=== PATIENT | male | born 1995 | race Caucasian/White ===

== ENCOUNTER 2020-11-11 09:29 | Emergency (ER) | payer SELFPAY ==
[2020-11-11] MEDS ORDERED: Sodium Chloride 0.9% 2.5 ML Syringe FLUSH PRN (09:58)
[2020-11-11] MEDS ORDERED: Sodium Chloride 0.9% 10 ML Syringe FLUSH PRN (09:58)
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
[2020-11-11] MEDS ORDERED: Tetracaine HCl/PF 0.5% 4 ML Bottle EYEBOTH ONE (10:14)
[2020-11-11 10:38] LABS: BLOOD UREA NITROGEN,BUN 9 mg/dL (7.0-18.0); CARBON DIOXIDE,CO2 30.1 mmol/L (21.0-32.0); CHLORIDE,CL 101 mmol/L (98-107); GLUCOSE RANDOM 103 mg/dL (74-106); POTASSIUM,K 4.1 mmol/L (3.5-5.1); SODIUM,NA 139 mmol/L (136-148)
[2020-11-11] MEDS ORDERED: methylPREDNISolone Sodium Succinate 125 MG/2 ML SDV IVPUSH ONE (10:46)
[2020-11-11] MEDS ORDERED: diphenhydrAMINE 50 MG/ML SDV IVPUSH ONE (10:46)
[2020-11-11] MEDS ORDERED: Iopamidol 755 MG/ML 500 ML Multipack Bottle IVPUSH ONE (11:00)
--- NOTE | 2020-11-11 11:22 | CT ---
DATE: 11/11/2020. CLINICAL HISTORY: Patient with left periorbital edema following nose bowing. TECHNIQUE: Standard CT scanning of the facial bones was performed. COMPARISON: None available. FINDINGS: There is a blowout fracture of the left lamina papyracea as well as the left orbital floor with associated herniation of extraconal fat but without definite evidence of entrapment of the inferior rectus muscle. In addition, there is extensive left periorbital subcutaneous and subconjunctival emphysema as well as left orbital emphysema, most notably along the roof of the left orbit. There is additional air seen within the left facial vein. No definite abnormality within the globe itself or the extra-ocular muscles. No evidence of significant abnormality within the visualized intracranial structures. IMPRESSION: 1. Blowout fracture of the left lamina papyracea and orbital floor with associated herniation of extraconal fat through both fractures, as detailed above. 2. Extensive left periorbital subcutaneous and subconjunctival emphysema as well as left orbital emphysema, with a small amount of air in the left facial vein. Please note that all CT scans at this facility use dose modulation, iterative reconstruction, and/or weight-based dosing when appropriate to reduce radiation dose to as low as reasonably achievable. Dictated by Alek Comer MD @ Nov 11 2020 11:09AM Signed by Dr. Alek Comer @ Nov 11 2020 11:21AM
== END 2020-11-11 12:26 | disposition home or self-care (01) ==
LOC: MW.ED 09:29
DX: S02.32XA Fracture of orbital floor, left side, initial encounter for closed fracture (principal); W22.8XXA Striking against or struck by other objects, initial encounter
CPT/HCPCS: 36415; 70487; 80053; 85025; 99284; Q9967; 99283

== ENCOUNTER 2022-11-27 14:21 | Emergency (ER) | payer SELFPAY | END 2022-11-27 21:02 | disposition left against medical advice (07) | LOC: MW.ED 14:21 | DX: Z53.21 Procedure and treatment not carried out due to patient leaving prior to being seen by health care provider (principal) ==

== ENCOUNTER 2023-01-21 22:40 | Emergency (ER) | payer MEDICAID ==
[2023-01-21] MEDS ORDERED: Ondansetron 4 MG/2 ML SDV IVPUSH ONE (22:46)
[2023-01-21] MEDS ORDERED: Sodium Chloride 0.9% 1,000 ML IV ONE (22:46)
[2023-01-21] MEDS ORDERED: Famotidine 20 MG/2 ML SDV IVPUSH ONE (22:46)
[2023-01-22 00:13] LABS: BASOPHILS PERCENT AUTO 0.3 % (0.0-1.5); EOSINOPHILS PERCENT AUTO 0.1 % (0.0-7.0); HEMATOCRIT 44.3 % (38.0-50.0); HEMOGLOBIN 15.7 g/dL (13.0-17.0); LYMPHOCYTES ABSOLUTE AUTO 1.2 K/uL (0.6-2.4); LYMPHOCYTES PERCENT AUTO 8.1 % (16.0-40.0); MEAN CORPUSCULAR HEMOGLOBIN 30.4 pg (27.0-32.0); MEAN CORPUSCULAR HGB CONC 35.4 g/dL (31.0-37.0); MEAN CORPUSCULAR VOLUME 85.9 fL (80.0-98.0); MONOCYTES ABSOLUTE AUTO 0.7 K/uL (0.0-0.8); MONOCYTES PERCENT AUTO 4.6 % (0.0-15.0); NEUTROPHILS ABSOLUTE AUTO 12.5 K/uL (1.4-5.7); NEUTROPHILS PERCENT AUTO 86.9 % (48.0-80.0); PLATELET COUNT,PLT 390 K/uL (150-400); RED BLOOD CELL COUNT 5.16 M/uL (4.50-5.90); WHITE BLOOD CELL COUNT,WBC 14.41 K/uL (4.0-11.0)
[2023-01-22 00:42] LABS: ALBUMIN 4.4 g/dL (3.4-5.0); BILIRUBIN TOTAL 0.5 mg/dL (0.2-1.0); CALCIUM 10.1 mg/dL (8.5-10.1); CARBON DIOXIDE,CO2 22.6 mmol/L (21.0-32.0); CREATININE 1.3 mg/dL (0.8-1.3); EST CRCL DRUG DOSING (CG) 92.85 mL/min; POTASSIUM,K 3.4 mmol/L (3.5-5.1); PROTEIN TOTAL,TP 8.7 g/dL (6.4-8.2)
[2023-01-22] MEDS ORDERED: Alum Hydro/Mag Hydro/Simeth XS 15 ML, Lidocaine 2% 5 ML PO ONE ×2 (00:54)
[2023-01-22] MEDS ORDERED: diphenhydrAMINE 50 MG/ML SDV IVPUSH ONE (01:32)
[2023-01-22] MEDS ORDERED: methylPREDNISolone Sodium Succinate 125 MG/2 ML SDV IVPUSH ONE (01:32)
[2023-01-22] MEDS ORDERED: Iopamidol 755 MG/ML 500 ML Multipack Bottle IVPUSH STA (03:09)
== END 2023-01-22 04:34 | disposition home or self-care (01) ==
LOC: MW.ED 22:40
DX: R11.2 Nausea with vomiting, unspecified (principal); Z91.041 Radiographic dye allergy status
CPT/HCPCS: 36415; 74177; 80053; 83690; 85025; 96361; 96374; 96375; 99284; A9270; J1200; J2405; J2930; J3490; J7030; Q9967